=== PATIENT | female | born 1960 | race Hispanic/Latino ===

== ENCOUNTER → 2022-02-24 | Outpatient (CLI) | payer OTHER | END | disposition home or self-care (01) | LOC: SHCH 10:08 | PROVIDERS: ATTEND Internal Medicine Cardiovascular Disease | DX: I35.1 Nonrheumatic aortic (valve) insufficiency (principal) | CPT/HCPCS: 93306 ==

== ENCOUNTER → 2022-05-25 | Outpatient (CLI) | payer OTHER ==
[~2022-05-25] MED LIST: IOHEXOL 350 MG/ML 100ML INFUS..BTL IV ONE
== END | disposition home or self-care (01) ==
LOC: RAH 08:55
PROVIDERS: ATTEND Internal Medicine Cardiovascular Disease
DX: I20.9 Angina pectoris, unspecified (principal); M47.815 Spondylosis without myelopathy or radiculopathy, thoracolumbar region
CPT/HCPCS: 75574; Q9967

== ENCOUNTER 2022-07-13 08:57 | Observation (INO) | payer OTHER ==
[2022-07-11 13:21] LABS: BASOPHILS % (AUTO) 0.8 % (0.0-5.0); EOSINOPHILS % (AUTO) 2.1 % (0.0-8.0); HEMATOCRIT 43.6 % (36-48); LYMPHOCYTES % (AUTO) 31.3 % (21.0-51.0); MEAN CORPUSCULAR HEMOGLOBIN 31.6 pg (27.0-33.0); MEAN CORPUSCULAR HGB CONC 32.1 g/dL (32.0-36.0); MEAN CORPUSCULAR VOLUME 98.4 fL (79-99); MONOCYTES % (AUTO) 8.5 % (3.0-13.0); NEUTROPHILS % (AUTO) 57.1 % (40.0-77.0); PLATELET COUNT (AUTO) 334 K/uL (130-400); RED BLOOD CELL COUNT(AUTO) 4.43 MIL/uL (4.00-5.50); RED CELL DISTRIBUTION WIDTH 13.1 % (11.0-15.5); WHITE BLOOD COUNT (AUTO) 5.3 K/uL (4.8-10.8)
[2022-07-11 13:27] LABS: POTASSIUM 4.5 mmol/L (3.5-5.1)
[2022-07-11 13:31] LABS: APPEARANCE,URINE CLEAR (CLEAR); BILIRUBIN,URINE NEGATIVE (NEGATIVE); COLOR,URINE YELLOW (YELLOW); GLUCOSE, URINE (UA) NEGATIVE (NEGATIVE); INR 0.95 (0.85-1.15); KETONES,URINE NEGATIVE (NEGATIVE); LEUKOCYTE ESTERASE ,URINE NEGATIVE Leu/uL (NEGATIVE); NITRATE,URINE NEGATIVE (NEGATIVE); OCCULT BLOOD,URINE NEGATIVE (NEGATIVE); PH,URINE 7.5 (5.0-8.0); PROTEIN,URINE NEGATIVE (NEGATIVE); PROTHROMBIN TIME 10.4 SEC (9.6-11.6); UROBILINOGEN,URINE 0.2 mg/dL (0.2-1.0)
[2022-07-11 13:32] LABS: PARTIAL THROMBOPLASTIN TIME 24.7 SEC (26.3-35.5)
[2022-07-11 13:53] LABS: B-TYPE NATRIURETIC PEPTIDE 14 pg/mL (0-100)
[2022-07-11 13:56] VITALS: BP 147/77
[~2022-07-13] VITALS: Ht 152.4 cm; Wt 72.1 kg
[2022-07-13] VITALS (11 sets, daily range): BP systolic 96–141; BP diastolic 47–72
[~2022-07-13 08:57] MED LIST changes: +0.9% NACL 500ML IV.SOLN 500 ML IV SCH; +ALIR150P6 SQ; +BIOTIN PO; +CLOP75TA32 PO; +DAPA10TA PO; +DEXL30CA3 PO; +ESZO3 PO; +EZET10TA48 PO; +FENO160T16 PO; +ICOS1CAP PO; -IOHEXOL 350 MG/ML 100ML INFUS..BTL IV ONE; +LINA145C PO; +LISI10TA24 PO; +MELO-106 PO; +METF-444 PO; +METO-408 PO; +MULT-1367 PO; +RANO500T3 PO; +ROSU10TA28 PO; +TRIA15CR48 TP; +VALA500T42 PO; +VITAMIN B12 PO
[2022-07-13] MEDS ORDERED: 0.9%NACL 1000ML 1,000 ML IV ONE ×2 (09:43→16:00)
[2022-07-13] MEDS ORDERED: NITROGLYCERIN 50MG VIAL ONE (12:47)
[2022-07-13] MEDS ORDERED: NICARDIPINE 25MG INJ IV ONE (12:47)
[2022-07-13] MEDS ORDERED: SODIUM BICARB 50MEQ 50ML VIAL 50 ML ONE (12:47)
[2022-07-13] MEDS ORDERED: LIDOCAINE HCL 400MG/20ML VIAL ONE (12:48)
[2022-07-13] MEDS ORDERED: IOHEXOL-350 50ML VIAL IV ONE (12:48)
[2022-07-13] MEDS ORDERED: IOHEXOL 350 MG/ML 100ML INFUS..BTL IV ONE (12:48)
[2022-07-13] MEDS ORDERED: MEPERIDINE-PF 25 MG/ML SYG ONE (12:48)
[2022-07-13] MEDS ORDERED: MIDAZOLAM HCL 1 MG/ML 2ML VIAL ONE ×5 (12:48→14:07)
[2022-07-13] MEDS ORDERED: HEPARIN 10,000 UNIT/10ML (1,000 UNIT/ML) VIAL ONE (12:49)
[2022-07-13] MEDS ORDERED: FENTANYL CITRATE PF 50 MCG/1 ML 2ML VIAL ONE ×2 (13:08→13:58)
[2022-07-13] MEDS ORDERED: ATROPINE 1MG SYG IVP ONE (14:11)
[2022-07-13] MEDS ORDERED: EPTIFIBATIDE 75MG/100ML BOTTLE 100 ML IV ONE (14:30)
[2022-07-13] MEDS ORDERED: EPTIFIBATIDE 2 MG/ML 10 ML VIAL IVP ONE ×2 (14:30→14:40)
[2022-07-13] MEDS ORDERED: TICAGRELOR 90 MG TABLET ONE (15:06)
[2022-07-13] MEDS ORDERED: ASPIRIN 325MG EC TAB PO ONE (15:06)
[2022-07-13] MEDS ORDERED: NITROGLYCERIN 4.1 GM SPRAY TL ONE (15:28)
[2022-07-13] MEDS ORDERED: ACETAMINOPHEN WITH CODEINE 1 TAB TAB PO PRN (16:00)
[2022-07-13] MEDS ORDERED: DEXTROSE 50%-WATER 50 ML DISP.SYRIN IV PRN (16:00)
[2022-07-13] MEDS ORDERED: EPTIFIBATIDE 75MG/100ML BOTTLE 100 ML IV SCH (16:00)
[2022-07-13] MEDS ORDERED: ONDANSETRON 4MG INJ IVP PRN (16:00)
[2022-07-13] MEDS ORDERED: GLUCAGON 1MG KIT 1 MG ML IM PRN (16:00)
[2022-07-13] MEDS: INSULIN HUMULIN R 100 UNIT/ML 3ML SQ SCH ×2 (16:30→20:32)
[2022-07-13] MEDS ORDERED: **HM**(Linaclotide (Linzess) 145 MCG PO PRN (16:30)
[2022-07-13] MEDS ORDERED: VALACYCLOVIR HCL 500 MG TABLET PO PRN (16:30)
[2022-07-13] MEDS ORDERED: PHARMACY COMMUNICATION MISC SCH (16:30)
[2022-07-13] MEDS: ACETAMINOPHEN WITH CODEINE 1 TAB TAB PO PRN (17:07)
[2022-07-13] MEDS: TICAGRELOR 90 MG TABLET PO SCH (20:53)
[2022-07-13] MEDS ORDERED: EZETIMIBE 10 MG TAB PO SCH (21:00)
[2022-07-13] MEDS: **HM**(Icosapent Ethyl (Vascepa) 2 GM PO SCH (21:00)
[2022-07-13] MEDS ORDERED: ESZOPICLONE 3 MG PO SCH (21:00)
[2022-07-13] MEDS ORDERED: **HM**(Fenofibrate 160 MG PO SCH (21:00)
[2022-07-13] MEDS ORDERED: ATORVASTATIN 20 MG TABLET PO SCH (21:00)
[2022-07-14 00:01] VITALS: BP 122/70
[2022-07-14] MEDS: ACETAMINOPHEN WITH CODEINE 1 TAB TAB PO PRN (00:53)
[2022-07-14 04:09] LABS: BASOPHILS % (AUTO) 0.2 % (0.0-5.0); EOSINOPHILS % (AUTO) 1.7 % (0.0-8.0); HEMATOCRIT 34.7 % (36-48); LYMPHOCYTES % (AUTO) 23.9 % (21.0-51.0); MEAN CORPUSCULAR HEMOGLOBIN 31.6 pg (27.0-33.0); MEAN CORPUSCULAR HGB CONC 32.3 g/dL (32.0-36.0); MONOCYTES % (AUTO) 8.2 % (3.0-13.0); NEUTROPHILS % (AUTO) 65.6 % (40.0-77.0); PLATELET COUNT (AUTO) 279 K/uL (130-400); RED BLOOD CELL COUNT(AUTO) 3.54 MIL/uL (4.00-5.50); RED CELL DISTRIBUTION WIDTH 12.9 % (11.0-15.5); WHITE BLOOD COUNT (AUTO) 5.4 K/uL (4.8-10.8)
[2022-07-14 04:19] LABS: INR 0.98 (0.85-1.15); PROTHROMBIN TIME 10.7 SEC (9.6-11.6)
[2022-07-14 04:31] LABS: ALBUMIN 3.5 g/dL (3.5-5.0); CREATININE 1.1 mg/dL (0.5-1.5); MAGNESIUM 1.9 mg/dL (1.80-2.40); POTASSIUM 3.6 mmol/L (3.5-5.1)
[2022-07-14 05:02] VITALS: BP 115/69
[2022-07-14] MEDS: INSULIN HUMULIN R 100 UNIT/ML 3ML SQ SCH ×2 (06:11→11:30)
[2022-07-14 08:00] VITALS: BP 122/73
[2022-07-14] MEDS: TICAGRELOR 90 MG TABLET PO SCH (08:21)
[2022-07-14] MEDS ORDERED: NON-FORMULARY MEDICATION 1 EACH (Dexlansoprazole (Dexilant) 60 MG) PO SCH (09:00)
[2022-07-14] MEDS ORDERED: PANTOPRAZOLE 40 MG TAB DR PO SCH (09:00)
[2022-07-14] MEDS ORDERED: RANOLAZINE 500 MG TAB.SR.12H PO SCH (09:00)
[2022-07-14] MEDS ORDERED: MULTIVITAMIN TABLET PO SCH (09:00)
[2022-07-14] MEDS ORDERED: TRIAMCINOLONE ACETONIDE 0.1% CREAM 15GM TP SCH (09:00)
[2022-07-14] MEDS ORDERED: **HM**(Dapagliflozin Propanediol (Farxiga) 10 MG PO SCH (09:00)
[2022-07-14] MEDS: **HM**(Icosapent Ethyl (Vascepa) 2 GM PO SCH (09:00)
[2022-07-14] MEDS ORDERED: BIOTIN PO SCH (09:00)
[2022-07-14] MEDS ORDERED: ASPIRIN 81MG CHEW TAB PO SCH (09:00)
[2022-07-14] MEDS ORDERED: METOPROLOL SUCCINATE 25 MG TAB.SR.24H PO SCH (09:00)
[2022-07-14] MEDS ORDERED: LISINOPRIL 10 MG TABLET PO SCH (09:00)
[2022-07-14] MEDS ORDERED: TICA90TA PO (11:33)
[2022-07-14] MEDS ORDERED: ALIR150P6 SQ (11:33)
[2022-07-14 12:04] VITALS: BP 123/71
[2022-07-15] MEDS ORDERED: **HM** VIT B12 PO SCH (09:00)
[2022-07-27] MEDS ORDERED: ALIROCUMAB 150 MG SQ SCH (09:00)
== END 2022-07-14 14:20 | disposition home or self-care (01) ==
LOC: DAH 08:57 → DAHIP 08:58 → DAH 08:58 → 2AH 16:44
PROVIDERS: ADMIT Hospitalist; ATTEND Hospitalist
DX: I25.119 Atherosclerotic heart disease of native coronary artery with unspecified angina pectoris (principal); I10 Essential (primary) hypertension; E78.5 Hyperlipidemia, unspecified; E11.51 Type 2 diabetes mellitus with diabetic peripheral angiopathy without gangrene; E66.9 Obesity, unspecified; E78.2 Mixed hyperlipidemia; I73.9 Peripheral vascular disease, unspecified; G47.33 Obstructive sleep apnea (adult) (pediatric); Z90.710 Acquired absence of both cervix and uterus; Z79.82 Long term (current) use of aspirin; Z95.1 Presence of aortocoronary bypass graft; Z79.02 Long term (current) use of antithrombotics/antiplatelets; Z79.899 Other long term (current) drug therapy
CPT/HCPCS: 80048; 83880; 85025 ×2; 85610 ×2; 85730; 81003; 36415 ×2; 71045; 93005 ×3; 36215; 75710; 93459; 93571; 85347 ×2; 82948 ×4; 83036; 83735; 80061; 80053; C1769 ×3; C1887 ×2; C1894 ×2; C1760; C1757; C1753; C1874 ×2; C1725 ×4; Q9965; G0378 ×20; J3010 ×2; J3490 ×3; J7030; J1644 ×3; J2250 ×5; J1327 ×3; Q9967; A4215; A4223 ×3; A4222; A4221; A4663; A4216; A4606; C9600; 99156; 99157; J0461; J2175

== ENCOUNTER 2022-11-05 06:42 | Observation (INO) | payer OTHER ==
[2022-11-02 11:38] LABS: BASOPHILS % (AUTO) 0.5 % (0.0-5.0); EOSINOPHILS % (AUTO) 3.4 % (0.0-8.0); HEMATOCRIT 39.3 % (36-48); LYMPHOCYTES % (AUTO) 30.4 % (21.0-51.0); MEAN CORPUSCULAR HEMOGLOBIN 31.3 pg (27.0-33.0); MEAN CORPUSCULAR HGB CONC 32.3 g/dL (32.0-36.0); MEAN CORPUSCULAR VOLUME 96.8 fL (79-99); MONOCYTES % (AUTO) 7.1 % (3.0-13.0); NEUTROPHILS % (AUTO) 58.4 % (40.0-77.0); PLATELET COUNT (AUTO) 319 K/uL (130-400); RED BLOOD CELL COUNT(AUTO) 4.06 MIL/uL (4.00-5.50); RED CELL DISTRIBUTION WIDTH 13.2 % (11.0-15.5); WHITE BLOOD COUNT (AUTO) 4.4 K/uL (4.8-10.8)
[2022-11-02 11:58] LABS: INR 0.98 (0.85-1.15); PROTHROMBIN TIME 10.7 SEC (9.6-11.6)
[2022-11-02 11:59] LABS: PARTIAL THROMBOPLASTIN TIME 25.6 SEC (26.3-35.5)
[2022-11-02 12:02] LABS: APPEARANCE,URINE CLEAR (CLEAR); BILIRUBIN,URINE NEGATIVE (NEGATIVE); COLOR,URINE LIGHT-YELLOW (YELLOW); GLUCOSE, URINE (UA) >=1000 mg/dL (NEGATIVE); KETONES,URINE NEGATIVE (NEGATIVE); LEUKOCYTE ESTERASE ,URINE NEGATIVE Leu/uL (NEGATIVE); NITRATE,URINE NEGATIVE (NEGATIVE); OCCULT BLOOD,URINE NEGATIVE (NEGATIVE); PH,URINE 5.5 (5.0-8.0); PROTEIN,URINE NEGATIVE (NEGATIVE); UROBILINOGEN,URINE 0.2 mg/dL (0.2-1.0)
[2022-11-02 12:06] LABS: BACTERIA,URINE Rare /HPF (None Seen); RBC,URINE 0-1 /HPF (0-1); SQUAMOUS EPITHELIAL CELL,UR FEW /HPF (0-2)
[2022-11-02 12:07] LABS: POTASSIUM 4.2 mmol/L (3.5-5.1); TOTAL PROTEIN, SERUM 7.3 g/dL (6.0-8.3)
[2022-11-02 12:08] VITALS: BP 133/70
[~2022-11-05] VITALS: Ht 151.1 cm; Wt 71.8 kg
[2022-11-05] VITALS (30 sets, daily range): BP systolic 101–161; BP diastolic 50–95
[~2022-11-05 06:42] MED LIST changes: -0.9% NACL 500ML IV.SOLN 500 ML IV SCH; +AEC81 PO; +CEFAZOLIN SODIUM 1 GM VIAL IVPB PRN; -CLOP75TA32 PO; +PRAS10TA9 PO
[2022-11-05] MEDS ORDERED: ONDANSETRON 4MG INJ ONE (07:08)
[2022-11-05] MEDS ORDERED: NEOSTIGMINE 5MG/5ML SYR IV ONE (07:08)
[2022-11-05] MEDS ORDERED: LIDOCAINE PF 100MG/5ML (2%) SYRINGE 5ML ONE (07:08)
[2022-11-05] MEDS ORDERED: PROPOFOL 10 MG/ML 20ML VIAL IV ONE (07:08)
[2022-11-05] MEDS ORDERED: DEXAMETHASONE SOD PHOSPHATE 10MG/ML 1ML VIAL ONE (07:08)
[2022-11-05] MEDS ORDERED: SUCCINYLCHOLINE 200MG/10ML SYR ONE (07:08)
[2022-11-05] MEDS ORDERED: GLYCOPYRROLATE 1 MG/5 ML SYRINGE ONE (07:08)
[2022-11-05] MEDS ORDERED: FENTANYL CITRATE PF 50 MCG/1 ML 2ML VIAL ONE ×3 (07:09→09:58)
[2022-11-05] MEDS ORDERED: ROCURONIUM 10MG/1ML SYR 10 MG/ML ML ONE (07:09)
[2022-11-05] MEDS ORDERED: MIDAZOLAM HCL 1 MG/ML 2ML VIAL ONE (07:09)
[2022-11-05] MEDS ORDERED: 0.9%NACL 1000ML 1,000 ML IV ONE (07:09)
[2022-11-05] MEDS ORDERED: ROPIVACAINE 0.5% 5MG/ML 30ML IJ ONE (07:18)
[2022-11-05] MEDS ORDERED: MORPHINE PF 100MG/10ML AMP IV ONE (07:18)
[2022-11-05] MEDS ORDERED: CEFAZOLIN SODIUM 2 GM VIAL IVPB ONE (08:20)
[2022-11-05] MEDS ORDERED: VANCOMYCIN 1G VIAL IRRIG ONE (08:26)
[2022-11-05] MEDS ORDERED: VANCOMYCIN 1G/250ML KIT 250 ML IV ONE (08:31)
[2022-11-05] MEDS ORDERED: KETOROLAC 30MG VIAL (30MG/ML) ONE (08:58)
[2022-11-05] MEDS ORDERED: TRANEXAMIC ACID 1000MG/10ML ONE (10:18)
[2022-11-05] MEDS ORDERED: MORPHINE 2 MG SYG ONE ×2 (10:40→11:12)
[2022-11-05] MEDS: HYDROCODONE/ACETAMINOPHEN 5/325 MG TAB PO PRN ×2 (11:30→18:05)
[2022-11-05] MEDS ORDERED: OXYCODONE HCL 10 MG TAB.SR.12H PO ONE (12:33)
[2022-11-05] MEDS: OXYCODONE HCL 5 MG TAB PO PRN ×4 (12:43→23:27)
[2022-11-05] MEDS ORDERED: KETOROLAC 60 MG VIAL (30MG/ML) IM ONE (13:54)
[2022-11-05] MEDS ORDERED: CEFAZOLIN SODIUM 2 GM VIAL IVPB SCH (16:30)
[2022-11-05] MEDS: HYDROMORPHONE HCL 2 MG TAB PO PRN ×2 (17:46→21:45)
[2022-11-05] MEDS ORDERED: ***HM***(Linaclotide (Linzess) 145 MCG) PO PRN (18:30)
[2022-11-05] MEDS ORDERED: ONDANSETRON 4MG INJ IVP PRN (18:30)
[2022-11-05] MEDS ORDERED: TEMAZEPAM 15 MG CAPSULE PO PRN (19:30)
[2022-11-05] MEDS ORDERED: ACETAMINOPHEN 325 MG TAB PO PRN (19:30)
[2022-11-05] MEDS: METFORMIN HCL 500 MG TABLET PO SCH (20:04)
[2022-11-05] MEDS: FAMOTIDINE 20MG TAB PO SCH (20:04)
[2022-11-05] MEDS: ICOSAPENT ETHYL 2 GM PO SCH (20:06)
[2022-11-05] MEDS: 0.9%NACL 1000ML 1,000 ML IV SCH (20:33)
[2022-11-05] MEDS ORDERED: ATORVASTATIN 20 MG TABLET PO SCH (21:00)
[2022-11-05] MEDS ORDERED: ESZOPICLONE 3 MG PO SCH (21:00)
[2022-11-05] MEDS ORDERED: EZETIMIBE 10 MG TAB PO SCH (21:00)
[2022-11-05] MEDS ORDERED: FENOFIBRATE 160 MG PO SCH (21:00)
[2022-11-06] VITALS: BP 148/62
[2022-11-06] MEDS: HYDROMORPHONE HCL 2 MG TAB PO PRN (03:36)
[2022-11-06 04:00] VITALS: BP 136/65
[2022-11-06 05:54] LABS: HEMATOCRIT 30.2 % (36-48); MEAN CORPUSCULAR HGB CONC 31.1 g/dL (32.0-36.0); MEAN CORPUSCULAR VOLUME 99.7 fL (79-99); RED BLOOD CELL COUNT(AUTO) 3.03 MIL/uL (4.00-5.50); RED CELL DISTRIBUTION WIDTH 12.8 % (11.0-15.5); WHITE BLOOD COUNT (AUTO) 7.4 K/uL (4.8-10.8)
[2022-11-06] MEDS: 0.9%NACL 1000ML 1,000 ML IV SCH (06:03)
[2022-11-06 06:17] LABS: ALBUMIN 2.9 g/dL (3.5-5.0); CREATININE 0.7 mg/dL (0.5-1.5); POTASSIUM 3.9 mmol/L (3.5-5.1); TOTAL PROTEIN, SERUM 5.9 g/dL (6.0-8.3)
[2022-11-06] MEDS: OXYCODONE HCL 5 MG TAB PO PRN ×3 (06:56→16:26)
[2022-11-06 08:53] VITALS: BP 144/54
[2022-11-06] MEDS ORDERED: METOPROLOL SUCCINATE 25 MG TAB.SR.24H PO SCH (09:00)
[2022-11-06] MEDS ORDERED: PRASUGREL HCL 10 MG TABLET PO SCH (09:00)
[2022-11-06] MEDS ORDERED: ASPIRIN 325MG TAB PO SCH (09:00)
[2022-11-06] MEDS ORDERED: ***HM***(Dapagliflozin Propanediol (Farxiga) 10 MG) PO SCH (09:00)
[2022-11-06] MEDS ORDERED: DEXLANSOPRAZOLE 30 MG PO SCH (09:00)
[2022-11-06] MEDS: ICOSAPENT ETHYL 2 GM PO SCH (09:00)
[2022-11-06] MEDS ORDERED: LISINOPRIL 10 MG TABLET PO SCH (09:00)
[2022-11-06] MEDS ORDERED: RANOLAZINE 500 MG TAB.SR.12H PO SCH (09:00)
[2022-11-06] MEDS: FAMOTIDINE 20MG TAB PO SCH (09:10)
[2022-11-06] MEDS: METFORMIN HCL 500 MG TABLET PO SCH (09:10)
[2022-11-06 11:06] VITALS: BP 144/62
[2022-11-06] MEDS ORDERED: KETOROLAC 60 MG VIAL (30MG/ML) IM ONE (13:00)
[2022-11-06 15:52] VITALS: BP 119/55
[2022-11-19] MEDS ORDERED: ALIROCUMAB 150 MG SQ SCH (09:00)
== END 2022-11-06 20:05 | disposition home or self-care (01) ==
LOC: DAH 06:42 → DAHIP 06:43 → 3CH 14:30
PROVIDERS: ADMIT Orthopaedic Surgery Sports Medicine; ATTEND Orthopaedic Surgery Sports Medicine
DX: M17.11 Unilateral primary osteoarthritis, right knee (principal); Z20.822 Contact with and (suspected) exposure to COVID-19; I25.10 Atherosclerotic heart disease of native coronary artery without angina pectoris; E11.9 Type 2 diabetes mellitus without complications; I10 Essential (primary) hypertension; E78.5 Hyperlipidemia, unspecified; E66.9 Obesity, unspecified; Z79.899 Other long term (current) drug therapy
CPT/HCPCS: 80053 ×2; 85025; 85610; 85730; 86850 ×2; 86900 ×2; 86901 ×2; 87088; 87426; 81001; 36415 ×3; 71045; 93005; 27447; 96365; 96366; 96375; 82948 ×6; 97039 ×2; 96372; 85027; 97161; 97116 ×2; 97530; A6260; C1776 ×4; G0378 ×29; G0379; J7030 ×2; J3370 ×2; J3010 ×3; J0690 ×3; J3490 ×2; J0330; J1100; J2710; J2270 ×2; J2001; J2250; J2704; J2274; J2405 ×2; J1885 ×3; J2795; A6223; A4649 ×2; A5120; A4215; A4223; A4222; A4221; A4663

== ENCOUNTER → 2023-09-24 | Outpatient (CLI) | payer OTHER ==
[~2023-09-24] MED LIST changes: -AEC81 PO; -CEFAZOLIN SODIUM 1 GM VIAL IVPB PRN; -ESZO3 PO; +ESZO3TAB65 PO; +REGADENOSON 0.4 MG/5 ML PF SYG IVP ONE; -ROSU10TA28 PO; +ROSU10TA72 PO
== END | disposition home or self-care (01) ==
LOC: SHCH 09-23 08:17
PROVIDERS: ATTEND Internal Medicine Cardiovascular Disease
DX: I25.10 Atherosclerotic heart disease of native coronary artery without angina pectoris (principal)
CPT/HCPCS: 78452; 93017; J2785; A9500 ×2; 96374

== ENCOUNTER → 2023-10-15 | Outpatient (CLI) | payer OTHER ==
[~2023-10-15] MED LIST changes: -REGADENOSON 0.4 MG/5 ML PF SYG IVP ONE
== END | disposition home or self-care (01) ==
LOC: SHCH 13:27
PROVIDERS: ATTEND Internal Medicine Cardiovascular Disease
DX: I65.23 Occlusion and stenosis of bilateral carotid arteries (principal); I70.0 Atherosclerosis of aorta; I25.10 Atherosclerotic heart disease of native coronary artery without angina pectoris; R07.9 Chest pain, unspecified
CPT/HCPCS: 93880; 93978

== ENCOUNTER 2024-02-20 05:57 | Day surgery (SDC) | payer OTHER ==
[2024-02-20] VITALS (10 sets, daily range): BP systolic 89–149; BP diastolic 52–69; PULSE 58–67; RESP 11–18; TEMP 97–97.5
[~2024-02-20] VITALS: Ht 152.4 cm; Wt 69.9 kg
[~2024-02-20 05:57] MED LIST changes: -ALIR150P6 SQ; +ASPI-1197 PO; -BIOTIN PO; -DAPA10TA PO; -ESZO3TAB65 PO; +ISOS30TA92 PO; +LUBI24CA2 PO; -METF-444 PO; -MULT-1367 PO; -RANO500T3 PO; +RANO500T6 PO; +SEMA7TAB2 PO; -TRIA15CR48 TP; -VALA500T42 PO; -VITAMIN B12 PO; +ZOLP10TA2 PO
[2024-02-20] MEDS: 0.9%NACL 1000ML 1,000 ML IV ONE (07:26)
[2024-02-20] MEDS ORDERED: proPOFol 10 MG/ML 20ML VIAL IV ONE (07:38)
[2024-02-20] MEDS ORDERED: LIDOCAINE HCL 1% 20 ML VIAL ONE (07:38)
== END 2024-02-20 09:05 | disposition home or self-care (01) ==
LOC: DAH 05:57 → ENDO 05:57
PROVIDERS: ATTEND Internal Medicine Gastroenterology
DX: K59.04 Chronic idiopathic constipation (principal); K57.30 Diverticulosis of large intestine without perforation or abscess without bleeding; K31.89 Other diseases of stomach and duodenum; K22.89 Other specified disease of esophagus; K22.70 Barrett's esophagus without dysplasia; K64.0 First degree hemorrhoids; D12.5 Benign neoplasm of sigmoid colon; R14.0 Abdominal distension (gaseous); R10.13 Epigastric pain; J45.909 Unspecified asthma, uncomplicated; I11.9 Hypertensive heart disease without heart failure; I25.10 Atherosclerotic heart disease of native coronary artery without angina pectoris; Z86.73 Personal history of transient ischemic attack (TIA), and cerebral infarction without residual deficits; Z90.49 Acquired absence of other specified parts of digestive tract; Z96.659 Presence of unspecified artificial knee joint; Z90.710 Acquired absence of both cervix and uterus; Z88.8 Allergy status to other drugs, medicaments and biological substances; Z79.82 Long term (current) use of aspirin; Z79.899 Other long term (current) drug therapy
CPT/HCPCS: 45385; 43239; 82948; J7030 ×2; J2704; A4620; A4215 ×2; A4223; A4657; A4222; A4221; A4663; A4606; J3490

== ENCOUNTER → 2024-06-02 | Outpatient (CLI) | payer OTHER ==
[~2024-06-02] MED LIST changes: +AMOX500C2 PO; +BIOT10TA PO; +CHOL100053 PO; +DILT120C12 PO; +FISH1CAP20 PO; -ICOS1CAP PO; -ISOS30TA92 PO; +ISOS60TA77 PO; -LINA145C PO; -LUBI24CA2 PO; -MELO-106 PO; +NITR0.4T50 SL; +RANO500T2 PO; -RANO500T6 PO; -SEMA7TAB2 PO
--- NOTE | 2024-06-02 13:54 | HMCIMG ---
US SOFT TISSUE GROIN REASON: RT GROIN HEMATOMA. COMPARISON: None TECHNIQUE: Right groin soft tissue ultrasound study was performed. FINDINGS: There is complex hypoechoic structure measuring 5 x 5 x 6 mm in the right inguinal area may be related to hematoma with adjacent soft tissue swelling. No sonographic evidence of pseudoaneurysm is seen. IMPRESSION: Small right groin hematoma measuring 5 x 6 x 5 mm.
== END | disposition home or self-care (01) ==
LOC: RAH 12:26
PROVIDERS: ATTEND Internal Medicine Cardiovascular Disease
DX: S30.1XXA Contusion of abdominal wall, initial encounter (principal); L02.224 Furuncle of groin; X58.XXXA Exposure to other specified factors, initial encounter; Y93.89 Activity, other specified; Y92.89 Other specified places as the place of occurrence of the external cause; Y99.8 Other external cause status
CPT/HCPCS: 76882